=== PATIENT | male | born 1935 | race Two or more races ===

== ENCOUNTER 2019-10-27 14:55 | Inpatient (IN) | payer OTHER ==
[~2019-10-27] VITALS: Ht 165.1 cm; Wt 85.3 kg
--- NOTE | 2019-10-27 11:30 | NUR ---
CAREN NOTE CALLED AND INFORMED DR. RIVAS REGARDING PATIENTS CURRENT POTASSIUM LAB VALUE OF 6.8. INFORMED THAT POTASSIUM LAB VALUE WENT FROM 7.4 TO 6.8. ACKNOWLEDGED Addendum: 10/28/19 at 0023 by CANDY SALAS RN INCORRECT TIME
--- NOTE | 2019-10-27 15:02 | NUR ---
patient arrived at unit with c/o weakness x 1 week, with sob x 3 days. connected to monitor. will continue to monitor accordingly
[2019-10-27] MEDS ORDERED: ONDANSETRON HCL/PF 4 MG/2 ML VIAL IVP ONE (15:30)
[2019-10-27] MEDS ORDERED: ONDANSETRON HCL/PF 4 MG/2 ML VIAL ONE (15:35)
[2019-10-27 15:38] LABS: BASOPHILS % (AUTO) 0.3 % (0.0-2.0); EOSINOPHILS % (AUTO) 0.9 % (0.0-6.0); HEMATOCRIT 34 % (39-51); HEMOGLOBIN 11.3 g/dL (13.5-17.5); LYMPHOCYTES # (AUTO) 0.6 /CMM (0.8-4.8); LYMPHOCYTES % (AUTO) 12.4 % (20.0-44.0); MEAN CORPUSCULAR HGB CONC 33 g/dl (31.0-36.0); MEAN CORPUSCULAR VOLUME 95 fL (80-96); MONOCYTES # (AUTO) 0.3 /CMM (0.1-1.30); MONOCYTES % (AUTO) 7.1 % (2.0-12.0); NEUTROPHILS # (AUTO) 3.8 /CMM (1.8-8.9); NEUTROPHILS % (AUTO) 79.3 % (43.0-81.0); PLATELET COUNT (AUTO) 143 /CMM (150-450); RED BLOOD CELL COUNT(AUTO) 3.59 MIL/uL (4.5-6.0); WHITE BLOOD COUNT (AUTO) 4.8 K/uL (4.3-11.0)
--- NOTE | 2019-10-27 15:44 | NUR ---
PATIENT WHEELED BY Tumri FOR CT
[2019-10-27 15:54] LABS: ALANINE AMINOTRANSFERASE 14 U/L (12-78); ALBUMIN 3.4 g/dL (3.4-5.0); ALKALINE PHOSPHATASE 89 U/L (46-116); ASPARTATE AMINOTRANSFERASE 9 U/L (15-37); BILIRUBIN,DIRECT 0.1 mg/dL (0.0-0.2); BILIRUBIN,TOTAL 0.5 mg/dL (0.2-1.0); CALCIUM, SERUM 8.6 mg/dL (8.5-10.1); CARBON DIOXIDE 22 mmol/L (21-32); CHLORIDE 96 mmol/L (98-107); GLUCOSE 129 mg/dL (74-106); LIPASE 884 U/L (73-393); SODIUM SERUM 135 mmol/L (136-145); TOTAL PROTEIN, SERUM 7.5 g/dL (6.4-8.2)
[2019-10-27 15:57] LABS: CREATININE 15.3 mg/dL (0.6-1.3); POTASSIUM 7.4 mmol/L (3.5-5.1); UREA NITROGEN, BLOOD 143 mg/dL (7-18)
[2019-10-27] MEDS ORDERED: SODIUM BICARBONATE SYR 50 MEQ/50 ML DISP.SYRIN ONE (16:02)
[2019-10-27] MEDS ORDERED: SODIUM POLYSTYRENE SULFONATE 15 G/60 ML BOTTLE ONE (16:02)
[2019-10-27] MEDS ORDERED: DEXTROSE 50%-WATER 50 ML DISP.SYRIN ONE (16:02)
[2019-10-27] MEDS ORDERED: INSULIN REGULAR, HUMAN 100 UNIT/ML 10 ML VIAL ONE (16:03)
[2019-10-27] MEDS ORDERED: ALBUTEROL FS 2.5 MG/3 ML VIAL.NEB ONE (16:07)
[2019-10-27] MEDS ORDERED: INSULIN REGULAR, HUMAN 100 UNIT/ML 10 ML VIAL IV ONE (16:30)
[2019-10-27] MEDS ORDERED: DEXTROSE 50%-WATER 50 ML DISP.SYRIN IVP ONE (16:30)
[2019-10-27] MEDS ORDERED: SODIUM BICARBONATE SYR 50 MEQ/50 ML DISP.SYRIN IV ONE (16:30)
[2019-10-27] MEDS ORDERED: ALBUTEROL FS 2.5 MG/3 ML VIAL.NEB NEB ONE (16:30)
--- NOTE | 2019-10-27 16:52 | NUR ---
[facility] BED 111-1
[2019-10-27] MEDS ORDERED: LOSA100T31 PO (17:11)
[2019-10-27] MEDS ORDERED: ISOS30TA9 PO (17:11)
[2019-10-27] MEDS ORDERED: IPRA12.9 IH (17:11)
[2019-10-27] MEDS ORDERED: IRON100V6 IV (17:11)
[2019-10-27] MEDS ORDERED: FAMO20TA8 PO (17:11)
[2019-10-27] MEDS ORDERED: ASPI-605 PO (17:11)
[2019-10-27] MEDS ORDERED: GLIP2.5T3 PO (17:11)
[2019-10-27] MEDS ORDERED: LABE100T5 PO (17:11)
[2019-10-27] MEDS ORDERED: OMEP40CA13 PO (17:11)
[2019-10-27] MEDS ORDERED: FOLI0.8C PO (17:11)
[2019-10-27] MEDS ORDERED: DARB100D IJ (17:11)
[2019-10-27] MEDS ORDERED: SEVE800T28 PO (17:11)
[2019-10-27] MEDS ORDERED: OMEG1CAP PO (17:11)
[2019-10-27] MEDS ORDERED: [UNRECOGNIZED DRUG - CODE] HE (17:11)
[2019-10-27] MEDS ORDERED: ERGO500014 PO (17:11)
[2019-10-27] MEDS ORDERED: NIFE90TA37 PO (17:11)
[2019-10-27] MEDS ORDERED: PARI1CAP PO (17:11)
[2019-10-27] MEDS ORDERED: PENT400T17 PO (17:11)
[2019-10-27] MEDS ORDERED: AMIN960L9 PO (17:11)
[2019-10-27] MEDS ORDERED: HYDR-4077 PO (17:11)
[2019-10-27] MEDS ORDERED: PRAV80TA21 PO (17:11)
[2019-10-27] MEDS ORDERED: POLY17PO4 PO (17:11)
[2019-10-27] MEDS ORDERED: NIFE30TA89 PO (17:11)
--- NOTE | 2019-10-27 17:36 | NUR ---
REPORT GIVEN TO MARYJANE FABIAN FOR CONNIE
--- NOTE | 2019-10-27 17:55 | NUR ---
transfer to 111.1, report given to primary care nurse
--- NOTE | 2019-10-27 18:00 | NUR ---
RECEIVED PT FROM ER VIA GURNEY TO JOSE ANTONIO. ALERT AND ORIENTED X 4, ON ROOM AIR, SATURATING WELL, RESPIRATIONS EVEN AND UNLABORED, NO SIGNS OF RESPIRATORY DISTRESS NOTED. ON TELE MONITOR SINUS RHYTHM 64. LAST HD 10/27/19. IV SITE ON RIGHT AC G18 INTACT, PATENT, HEP LOCK IN PLACE. AV SHUNT ON LEFT ARM. ABLE TO AMBULATE TO BATHROOM WITH STEADY GAIT. VITALS: BP 132/80, HR 70, 02 SAT 98%, RR 18, TEMP 98.0. BED IN LOW POSITION, LOCKED, CALL LIGHT WITHIN REACH, ENDORSED TO NOC SHIFT NURSE.
[2019-10-27] MEDS ORDERED: PROSOURCE / PROSTAT (PYXIS) 30 ML UDC PO SCH (18:30)
[2019-10-27] MEDS ORDERED: MORPHINE SULFATE INJ 2 MG/ML DISP.SYRIN IV PRN (18:30)
[2019-10-27] MEDS ORDERED: MAGNESIUM HYDROXIDE 30 ML UDC PO PRN (18:30)
[2019-10-27] MEDS ORDERED: [UNRECOGNIZED DRUG - OTHER] HE SCH (18:30)
[2019-10-27] MEDS ORDERED: [UNRECOGNIZED DRUG - OTHER] IJ SCH (18:30)
[2019-10-27] MEDS ORDERED: MAG HYDROX/AL HYDROX/SIMETH 30 ML UDC PO PRN (18:30)
[2019-10-27] MEDS ORDERED: ONDANSETRON HCL/PF 4 MG/2 ML VIAL IVP PRN (18:30)
[2019-10-27] MEDS ORDERED: HYDROCODONE/APAP 5/325MG 1 EACH TABLET PO PRN (18:30)
[2019-10-27] MEDS ORDERED: Z GUARD REMEDY 2 OZ OINT TP PRN (18:30)
[2019-10-27] MEDS ORDERED: DARBEPOETIN ALFA IJ SCH (18:30)
[2019-10-27] MEDS ORDERED: ACETAMINOPHEN 325 MG TABLET PO PRN (18:30)
[2019-10-27] MEDS ORDERED: POLYETHYLENE GLYCOL 3350 17 GM POWD.PACK PO PRN (18:30)
--- NOTE | 2019-10-27 19:15 | NUR ---
RN OPENING NOTE RECEIVED PATIENT IN BED RESTING. HOB ELEVATED. A&O X4. BREATHING EVEN AND NON LABORED, NO SOB NOTED AT THIS TIME. IN NO APPARENT DISTRESS NOTED AT THIS TIME. CALL LIGHT IS WITHIN EASY REACH. WILL CONTINUE TO MONITOR.
[2019-10-27 19:50] LABS: CALCIUM, SERUM 8.3 mg/dL (8.5-10.1); CARBON DIOXIDE 20 mmol/L (21-32); CHLORIDE 98 mmol/L (98-107); GLUCOSE 91 mg/dL (74-106); SODIUM SERUM 137 mmol/L (136-145)
[2019-10-27 19:54] LABS: POTASSIUM 6.8 mmol/L (3.5-5.1)
[2019-10-27 19:55] LABS: CREATININE 15.7 mg/dL (0.6-1.3); UREA NITROGEN, BLOOD 142 mg/dL (7-18)
[2019-10-27 20:00] VITALS: BP 157/51
[2019-10-27] MEDS: ATORVASTATIN 10 MG TABLET PO SCH (22:33)
[2019-10-27] MEDS: LOSARTAN POTASSIUM 50 MG TABLET PO SCH (22:33)
[2019-10-27] MEDS: NIFEdipine XL (30MG) 30 MG TAB PO SCH (22:33)
--- NOTE | 2019-10-27 23:30 | NUR ---
RN NOTE CALLED AND INFORMED DR. RIVAS REGARDING PATIENTS CURRENT POTASSIUM LAB VALUE OF 6.8. INFORMED MD THAT POTASSIUM LAB VALUE WENT FROM 7.4 TO 6.8. MD ACKNOWLEDGED.
[2019-10-28] VITALS (7 sets, daily range): BP systolic 150–180; BP diastolic 50–78
[2019-10-28 06:20] LABS: BASOPHILS % (AUTO) 0.3 % (0.0-2.0); EOSINOPHILS % (AUTO) 1.8 % (0.0-6.0); HEMATOCRIT 33 % (39-51); HEMOGLOBIN 10.9 g/dL (13.5-17.5); LYMPHOCYTES # (AUTO) 1.2 /CMM (0.8-4.8); LYMPHOCYTES % (AUTO) 20.5 % (20.0-44.0); MEAN CORPUSCULAR HGB CONC 33 g/dl (31.0-36.0); MEAN CORPUSCULAR VOLUME 94 fL (80-96); MONOCYTES # (AUTO) 0.6 /CMM (0.1-1.30); NEUTROPHILS # (AUTO) 3.9 /CMM (1.8-8.9); NEUTROPHILS % (AUTO) 67.4 % (43.0-81.0); PLATELET COUNT (AUTO) 142 /CMM (150-450); RED BLOOD CELL COUNT(AUTO) 3.47 MIL/uL (4.5-6.0); WHITE BLOOD COUNT (AUTO) 5.9 K/uL (4.3-11.0)
--- NOTE | 2019-10-28 06:44 | NUR ---
RN CLOSING NOTE PATIENT IS IN BED RESTING WITH HOB ELEVATED, WATCHING TV AT THIS TIME. A&O X4. BREATHING IS EVEN AND NON LABORED, NO SOB NOTED. PATIENT IS AMBULATORY AND ABLE TO REPOSITION SELF. IN NO APPARENT DISTRESS NOTED AT THIS TIME. ALL DUE MEDS GIVEN AND TOLERATED WELL. PATIENT KEPT ON CLEAR LIQUID DIET AND TOLERATED WELL. PATIENT KEPT CLEAN, DRY, AND COMFORTABLE. CALL LIGHT IS WITHIN EASY REACH. WILL ENDORSE TO MORNING SHIFT RN FOR CONNIE.
[2019-10-28 07:02] LABS: CHOLESTEROL 111 mg/dL (<200); HDL CHOLESTEROL 30 mg/dL (40-60); LDL 60 mg/dL (0-99); THYROID STIMULATING HORMONE 3.181 uIU/mL (0.358-3.74); TRIGLYCERIDES 172 mg/dL (30-150)
[2019-10-28 07:10] LABS: ALANINE AMINOTRANSFERASE 9 U/L (12-78); ALBUMIN 3.1 g/dL (3.4-5.0); ALKALINE PHOSPHATASE 73 U/L (46-116); ASPARTATE AMINOTRANSFERASE 6 U/L (15-37); BILIRUBIN,TOTAL 0.5 mg/dL (0.2-1.0); CALCIUM, SERUM 8.2 mg/dL (8.5-10.1); CARBON DIOXIDE 22 mmol/L (21-32); CHLORIDE 99 mmol/L (98-107); GLUCOSE 95 mg/dL (74-106); MAGNESIUM 3.3 mg/dL (1.8-2.4); PHOSPHORUS 3.8 mg/dL (2.5-4.9); POTASSIUM 5.9 mmol/L (3.5-5.1); SODIUM SERUM 137 mmol/L (136-145); TOTAL PROTEIN, SERUM 6.6 g/dL (6.4-8.2)
[2019-10-28] MEDS: FOLIC ACID 1 MG TABLET PO SCH ×2 (08:10→17:44)
[2019-10-28] MEDS: ASPIRIN EC 81 MG TABLET.DR PO SCH (08:10)
[2019-10-28] MEDS: FAMOTIDINE (20 MG) 20 MG TABLET PO SCH (08:10)
[2019-10-28] MEDS: PENTOXIFYLLINE 400 MG TABLET.SA PO SCH (08:10)
[2019-10-28 08:38] LABS: CREATININE 16.5 mg/dL (0.6-1.3); UREA NITROGEN, BLOOD 150 mg/dL (7-18)
[2019-10-28] MEDS: glipiZIDE XL 2.5 MG TAB.OSM.24 PO SCH (09:00)
[2019-10-28] MEDS ORDERED: Medication Not On Formulary EA (Omega-3 Fatty Acids/Fish Oil (Fish Oil 1,000 Mg Capsule) PO SCH (09:00)
[2019-10-28] MEDS: LABETALOL HCL (100MG) 100 MG TABLET PO SCH ×3 (09:00→17:44)
[2019-10-28] MEDS: ISOSORBIDE MONONITRATE (30MG) 30 MG TAB.SR.24H PO SCH ×2 (09:00→17:43)
[2019-10-28] MEDS: hydrALAZINE HCL 50 MG TABLET PO SCH ×3 (09:00→17:43)
--- NOTE | 2019-10-28 10:00 | NUR ---
RN NOTE MORNING BP MEDS HELD DUE TO PENDING HEMODIALYSIS.
[2019-10-28] MEDS ORDERED: DEXTROSE 50%-WATER 50 ML DISP.SYRIN IV PRN (11:00)
[2019-10-28] MEDS: BLOOD SUGAR DIAGNOSTIC 1 EACH STRIP IN SCH ×3 (14:14→21:06)
[2019-10-28 17:16] LABS: CARBON DIOXIDE 25 mmol/L (21-32); CHLORIDE 100 mmol/L (98-107); GLUCOSE 181 mg/dL (74-106); POTASSIUM 4.4 mmol/L (3.5-5.1); SODIUM SERUM 141 mmol/L (136-145); UREA NITROGEN, BLOOD 70 mg/dL (7-18)
[2019-10-28 17:29] LABS: CREATININE 8.9 mg/dL (0.6-1.3)
--- NOTE | 2019-10-28 19:20 | NUR ---
JOSE ANTONIO RN OPENING NOTE RECEIVED PATIENT IN BED RESTING, WITH HOB ELEVATED. PATIENT IS WATCHING TV. A&O X4. BREATHING IS EVEN AND NON LABORED. NO SOB NOTED AT THIS TIME. IN NO APPARENT DISTRESS NOTED AT THIS TIME. BED IS LOWERED TO LOWEST POSITION AND LOCKED FOR SAFETY. CALL LIGHT IS WITHIN EASY REACH. WILL CONTINUE TO MONITOR.
[2019-10-28] MEDS: NIFEdipine XL (30MG) 30 MG TAB PO SCH (21:01)
[2019-10-28] MEDS: ATORVASTATIN 10 MG TABLET PO SCH (21:01)
[2019-10-28] MEDS: LOSARTAN POTASSIUM 50 MG TABLET PO SCH (21:02)
[2019-10-28] MEDS: INSULIN REGULAR, HUMAN 100 UNIT/ML 3 ML VIAL SQ PRN (21:10)
[2019-10-29] VITALS (7 sets, daily range): BP systolic 128–159; BP diastolic 47–72
--- NOTE | 2019-10-29 06:39 | NUR ---
JOSE ANTONIO RN CLOSING NOTE PATIENT IS IN BED RESTING. A&O X4. RESPONSIVE TO NAME AND LIGHT TOUCH. BREATHING EVEN AND NON LABORED. IN NO APPARENT DISTRESS NOTED AT THIS TIME. ALL DUE MEDS GIVEN AND TOLERATED WELL. KEPT PATIENT CLEAN, DRY, AND COMFORTABLE. BED IS LOWERED AND LOCKED FOR SAFETY. CALL LIGHT IS WITHIN REACH. WILL ENDORSE TO AM SHIFT RN.
[2019-10-29 07:04] LABS: BASOPHILS % (AUTO) 0.4 % (0.0-2.0); EOSINOPHILS % (AUTO) 1.4 % (0.0-6.0); HEMATOCRIT 30 % (39-51); HEMOGLOBIN 10.3 g/dL (13.5-17.5); LYMPHOCYTES # (AUTO) 1.1 /CMM (0.8-4.8); LYMPHOCYTES % (AUTO) 20.2 % (20.0-44.0); MEAN CORPUSCULAR HGB CONC 34 g/dl (31.0-36.0); MEAN CORPUSCULAR VOLUME 94 fL (80-96); MONOCYTES # (AUTO) 0.6 /CMM (0.1-1.30); MONOCYTES % (AUTO) 11.3 % (2.0-12.0); NEUTROPHILS # (AUTO) 3.7 /CMM (1.8-8.9); NEUTROPHILS % (AUTO) 66.7 % (43.0-81.0); PLATELET COUNT (AUTO) 135 /CMM (150-450); RED BLOOD CELL COUNT(AUTO) 3.23 MIL/uL (4.5-6.0); WHITE BLOOD COUNT (AUTO) 5.5 K/uL (4.3-11.0)
[2019-10-29 07:21] LABS: CALCIUM, SERUM 7.9 mg/dL (8.5-10.1); CARBON DIOXIDE 27 mmol/L (21-32); CHLORIDE 100 mmol/L (98-107); GLUCOSE 91 mg/dL (74-106); MAGNESIUM 2.4 mg/dL (1.8-2.4); PHOSPHORUS 5.3 mg/dL (2.5-4.9); POTASSIUM 5.2 mmol/L (3.5-5.1); SODIUM SERUM 140 mmol/L (136-145); UREA NITROGEN, BLOOD 75 mg/dL (7-18)
[2019-10-29 07:27] LABS: CREATININE 11.2 mg/dL (0.6-1.3)
[2019-10-29] MEDS: BLOOD SUGAR DIAGNOSTIC 1 EACH STRIP IN SCH ×4 (08:05→21:48)
[2019-10-29] MEDS: LABETALOL HCL (100MG) 100 MG TABLET PO SCH ×3 (09:00→17:18)
[2019-10-29] MEDS: ISOSORBIDE MONONITRATE (30MG) 30 MG TAB.SR.24H PO SCH ×2 (09:00→17:23)
[2019-10-29] MEDS: glipiZIDE XL 2.5 MG TAB.OSM.24 PO SCH (09:00)
[2019-10-29] MEDS: hydrALAZINE HCL 50 MG TABLET PO SCH ×3 (09:00→17:23)
--- NOTE | 2019-10-29 09:00 | NUR ---
RN NOTE BP MEDS HELD BEFORE HD.
[2019-10-29] MEDS: PENTOXIFYLLINE 400 MG TABLET.SA PO SCH (09:21)
[2019-10-29] MEDS: ASPIRIN EC 81 MG TABLET.DR PO SCH (09:21)
[2019-10-29] MEDS: FAMOTIDINE (20 MG) 20 MG TABLET PO SCH (09:21)
[2019-10-29] MEDS: FOLIC ACID 1 MG TABLET PO SCH ×2 (09:22→17:23)
[2019-10-29] MEDS: INSULIN REGULAR, HUMAN 100 UNIT/ML 3 ML VIAL SQ PRN ×2 (13:22→21:50)
--- NOTE | 2019-10-29 19:35 | NUR ---
RN NOTE RECEIVED PT ALERT AND ORIENTED X 4. PT IN BED IN SEMI LOPEZ'S POSITION. ON ROOM AIR. NO SOB NOTED. RESPIRATIONS EVEN AND UNLABORED. DENIES PAIN OR DISCOMFORT. AVF ON LEFT ARM THRILL AND BRUIT PRESENT. ON TELE MONITOR SINUS RHTHYM 66. CALL LIGHT WITHIN REACH. WILL MONITOR.
[2019-10-29] MEDS: ATORVASTATIN 10 MG TABLET PO SCH (21:18)
[2019-10-29] MEDS: NIFEdipine XL (30MG) 30 MG TAB PO SCH (21:18)
[2019-10-29] MEDS: LOSARTAN POTASSIUM 50 MG TABLET PO SCH (21:18)
[2019-10-30] VITALS: BP 159/57
--- NOTE | 2019-10-30 04:37 | NUR ---
RN NOTE PT REFUSED TO HAVE VITAL SIGNS TAKEN AT THIS TIME. RESPIRATIONS EVEN AND UNLABORED. NO INDICATIONS OF PAIN OR DISCOMFORT. ON TELE MONITOR. WILL OFFER TO HAVE VITAL SIGNS TAKEN AGAIN.
[2019-10-30 04:50] VITALS: BP 139/50
--- NOTE | 2019-10-30 07:06 | NUR ---
RN CLOSING NOTE PT IS AWAKE AND ALERT IN BED WITH HEAD OF BED SLIGHTLY ELEVATED. ON ROOM AIR, NO SOB NOTED. RESPIRATIONS EVEN AND UNLABORED. NO COMPLAINTS OF PAIN OR DISCOMFORT. ON TELE MONITOR. SAFETY MEASURES IN PLACE. ENDORSED TO MORNING SHIFT.
[2019-10-30 07:12] LABS: ALANINE AMINOTRANSFERASE 13 U/L (12-78); ALBUMIN 2.9 g/dL (3.4-5.0); ALKALINE PHOSPHATASE 70 U/L (46-116); ASPARTATE AMINOTRANSFERASE 11 U/L (15-37); BILIRUBIN,TOTAL 0.6 mg/dL (0.2-1.0); CARBON DIOXIDE 30 mmol/L (21-32); CHLORIDE 102 mmol/L (98-107); GLUCOSE 95 mg/dL (74-106); MAGNESIUM 2.4 mg/dL (1.8-2.4); PHOSPHORUS 5.8 mg/dL (2.5-4.9); POTASSIUM 4.6 mmol/L (3.5-5.1); SODIUM SERUM 144 mmol/L (136-145); TOTAL PROTEIN, SERUM 6.4 g/dL (6.4-8.2); UREA NITROGEN, BLOOD 57 mg/dL (7-18)
[2019-10-30 07:19] LABS: CREATININE 9.7 mg/dL (0.6-1.3)
[2019-10-30 07:26] LABS: BASOPHILS % (AUTO) 0.5 % (0.0-2.0); EOSINOPHILS % (AUTO) 2.7 % (0.0-6.0); HEMATOCRIT 31 % (39-51); HEMOGLOBIN 10.5 g/dL (13.5-17.5); MEAN CORPUSCULAR HGB CONC 34 g/dl (31.0-36.0); MEAN CORPUSCULAR VOLUME 94 fL (80-96); MONOCYTES # (AUTO) 0.7 /CMM (0.1-1.30); MONOCYTES % (AUTO) 14.3 % (2.0-12.0); NEUTROPHILS # (AUTO) 3.3 /CMM (1.8-8.9); NEUTROPHILS % (AUTO) 62.5 % (43.0-81.0); PLATELET COUNT (AUTO) 146 /CMM (150-450); WHITE BLOOD COUNT (AUTO) 5.2 K/uL (4.3-11.0)
[2019-10-30] MEDS: BLOOD SUGAR DIAGNOSTIC 1 EACH STRIP IN SCH ×2 (07:30→12:00)
--- NOTE | 2019-10-30 07:30 | NUR ---
SALES REPRESENTATIVE PRINTING NOTES PATIENT IN BED A/OX4 , HEARD OF HEARING. CHECKED THE HEARING AID AT BED SIDE.NO SOB OR DISCOMFORT NOTED AT THIS TIME. BLOOD GLUCOSE LEVEL 106 NO INSULIN GIVEN. BED AT THE LOWEST POSITION LOCKED. CALL LIGHT WITHIN REACH WILL CONTINUE TO MONITOR PATIENT.
[2019-10-30 08:00] VITALS: BP 133/63
[2019-10-30] MEDS: glipiZIDE XL 2.5 MG TAB.OSM.24 PO SCH (09:00)
[2019-10-30] MEDS: ISOSORBIDE MONONITRATE (30MG) 30 MG TAB.SR.24H PO SCH (09:00)
[2019-10-30] MEDS: LABETALOL HCL (100MG) 100 MG TABLET PO SCH ×2 (09:00→13:00)
[2019-10-30] MEDS: hydrALAZINE HCL 50 MG TABLET PO SCH ×2 (09:01→12:26)
[2019-10-30] MEDS: FOLIC ACID 1 MG TABLET PO SCH (09:03)
[2019-10-30] MEDS: ASPIRIN EC 81 MG TABLET.DR PO SCH (09:03)
[2019-10-30] MEDS: FAMOTIDINE (20 MG) 20 MG TABLET PO SCH (09:04)
[2019-10-30] MEDS: PENTOXIFYLLINE 400 MG TABLET.SA PO SCH (09:06)
[2019-10-30 12:00] VITALS: BP 143/60
[2019-10-30] MEDS: INSULIN REGULAR, HUMAN 100 UNIT/ML 3 ML VIAL SQ PRN (12:21)
[2019-10-30 13:00] VITALS: BP 143/60
--- NOTE | 2019-10-30 13:40 | NUR ---
MS RN NOTES PATIENT WAS DISCHARGED. IV LINE AND ID BAND REMOVED. ROBE (DAUGHTER) TOOK PATIENT TO THE LOBBY SAFELY. PATIENT WAS ABLE TO WALK TO LOBBY. PATIENT IS STABLE.
== END 2019-10-30 13:58 | disposition home or self-care (01) | DRG 438 ==
LOC: ER 14:55 → TELE-TD 18:18 → TELE1 10-29 09:59 → MEDSG1 10-30 09:53
PROVIDERS: ADMIT Nurse Practitioner Acute Care; ATTEND Nurse Practitioner Acute Care
PROC: 5A1D70Z Performance of Urinary Filtration, Intermittent, Less than 6 Hours Per Day (ICD-10-PCS; principal; 2019-10-28)
DX: K85.90 Acute pancreatitis without necrosis or infection, unspecified (principal); N18.6 End stage renal disease; I12.0 Hypertensive chronic kidney disease with stage 5 chronic kidney disease or end stage renal disease; B34.9 Viral infection, unspecified; E87.5 Hyperkalemia; D63.8 Anemia in other chronic diseases classified elsewhere; Z99.2 Dependence on renal dialysis; Z90.5 Acquired absence of kidney; Z85.51 Personal history of malignant neoplasm of bladder; E11.22 Type 2 diabetes mellitus with diabetic chronic kidney disease; I25.10 Atherosclerotic heart disease of native coronary artery without angina pectoris; K80.20 Calculus of gallbladder without cholecystitis without obstruction; Z79.82 Long term (current) use of aspirin; K76.0 Fatty (change of) liver, not elsewhere classified; E78.00 Pure hypercholesterolemia, unspecified; Z90.79 Acquired absence of other genital organ(s); Z79.84 Long term (current) use of oral hypoglycemic drugs
CPT/HCPCS: 36415; 76700-TC; 80048-TC; 80053-TC; 80061-TC; 80076-TC; 82962-TC; 83690-TC; 83735-TC; 84100-TC; 84132-TC; 84443-TC; 84484-TC; 85025-TC; 86706; 87081-TC; 87340; 90935-TC; 93930-TC; G0378; J1815; J2405; J3490; J7030